=== PATIENT | female | born 1995 | race Caucasian/White ===

== ENCOUNTER 2016-07-25 23:03 | Emergency (ER) | payer OTHER ==
--- NOTE | ~2016-07-25 | CT114 ---
[facility] A Service of [facility] RADIOLOGY TEXT RESULTS PATIENT: SAQIB NICOLAS LOCATION: SED : [birth year] UNIT #: [id number] AGE: [address]: Chelsi Chacko ENGINEERING AND DEVELOPMENT DIRECTOR PRICE CHECKER SEX: F ORDER DR: [id number] [address] [address] [id number] MR#: [id number] Acc #: [id number] NAME: SAQIB NICOLAS : 1995 SEX: F STUDY DATE/TIME: 07/25/2016 23:31 UNIT: SED ROOM: STUDY DESCRIPTION: CT Soft Tissue Neck W Cont Attending Physician: Chelsi Chacko A.P.R.N. Ordering Physician: Chelsi Chacko A.P.R.N. Primary Care Physician: Primary Care Physician No MEDICAL IMAGING REPORT This report is preliminary unless electronic signature is present. EXAM CT neck with contrast DATE 07/25/2016 HISTORY Sore throat since Saturday, now puff on tonsils and bleeding. COMPARISON None. PROCEDURE 3 mm axial images through the neck after IV contrast administration. Sagittal and coronal reformatted images were obtained. This CT exam was performed with one or more of the following radiation dose reduction techniques: Automatic exposure control, adjustment of mA and/or kV according to patient size, and iterative reconstruction. FINDINGS Upper neck evaluation is limited secondary to extensive beam-hardening artifact related to dental amalgam. Bilateral tonsillar pillars appear thickened and enhancing, right greater than left, consistent with active inflammatory process. There are single, tiny, low-density foci within each tonsillar pillar, right measuring 6 mm, left measuring 4 mm, which could represent small phlegmons. No well-defined drainable fluid collection or abscess is seen at this time, however. There are enlarged bilateral cervical lymph nodes which are nonspecific but may be reactive. For example, jugulodigastric nodes are enlarged, on the right 1.9 x 1.2 cm, on the left 1.6 x 1.1 cm. Right posterior [facility] of [facility] RADIOLOGY TEXT RESULTS PATIENT: SAQIB NICOLAS LOCATION: SED : 94 UNIT #: [id number] AGE: [address]: Chelsi Chacko APRN PRICE CHECKER SEX: F ORDER DR: cervical triangle node measures 1.4 x 0.7 cm. Parapharyngeal planes appear well preserved. Bilateral parotid and submandibular glands are within normal limits. Thyroid gland is normal. The epiglottis is unremarkable, and the laryngeal folds are within normal limits. The airway appears patent. Osseous structures are within normal limits. Imaged lung apices appear clear. Superior mediastinum is within normal limits. Major paranasal sinuses and mastoid air cells appear clear, and the calvarium is normal. IMPRESSION 1. Thickening and inflammatory changes of the bilateral tonsillar pillars, right greater than left. 2. There are single, small, low-density foci within each tonsillar pillar, right 6 mm, left 4 mm. These are nonspecific and could represent small evolving phlegmons. However, no well-defined or drainable fluid collection or abscess is seen at this time. 3. Limited visualization of the upper neck due to dental amalgam artifact. 4. Enlarged bilateral cervical lymph nodes are nonspecific and are favored to represent benign reactive findings. Continued clinical followup recommended. Dictated by... Imani Mohamud M.D. THIS IS AN ELECTRONICALLY VERIFIED REPORT Imani Mohamud M.D. at 07/26/2016 10:01 PM [facility]/wagner TD: 07/26/2016 02:41 JOB #: [id number] MEDICAL IMAGING REPORT Page 1 of 1
[~2016-07-25 23:03] MED LIST: BENADRYL25 MG PO; DOXYCYCLINE MO100 MG PO; FAMOTIDINE PO; FLAGYL PO; NAPROXEN; NAPROXEN250 MG; NO MEDICATIONS; NORCO1 TAB 10/3 PO; PEN-VEE K PO; TYLENOL #3 PO; VOLTAREN75 MG PO
[2016-07-25 23:28] LABS: BASOPHIL% 0.3 % (0-2.5); HEMATOCRIT 41.7 % (35.0-45.0); HEMOGLOBIN 13.6 gm/dL (12.0-16.0); LYMPHOCYTE# 1.7 X10e3 (1.0-3.5); MEAN CELL VOLUME 88.8 FL (83-96); MEAN CORPUSCULAR HGB CONC 32.7 g/dL (30-36); MEAN PLATELET VOLUME 7.4 FL (6.5-11.5); MONOCYTE# 1.4 X10e3 (0-1.0); MONOCYTE% 10.9 % (3.0-12.0); NEUTROPHIL# 9.8 X10e3 (1.5-7.1); NEUTROPHIL% 75.8 % (40-75); PLATELET COUNT 249 X10e3 (140-420); RED CELL DISTRIBUTION WIDTH 13.5 % (11.0-15.5)
[2016-07-25 23:32] LABS: DIFF IND NO
[2016-07-25 23:47] LABS: BILIRUBIN,TOTAL 0.6 mg/dL (0.2-2.0); BUN/CREATININE RATIO 11.66; CALCIUM SERUM 8.3 mg/dL (8.4-10.2); CREATININE SERUM 0.6 mg/dL (0.6-1.4); GLOM FILT RATE Estimated 130.3 mL/min (>60); POTASSIUM 3.4 mmol/L (3.5-5.1); PROTEIN TOTAL SERUM 7.8 g/dL (6.0-8.3)
== END 2016-07-26 01:23 | disposition home or self-care (01) ==
LOC: SED 23:03
PROVIDERS: Nurse Practitioner
DX: J03.90 Acute tonsillitis, unspecified (principal); E86.0 Dehydration
CPT/HCPCS: 70491; 80053; 85025; 86308; 87651; 96361; 96374; 96375; 99284; J2270; J2405; J2930; Q9967